=== PATIENT | male | born 1960 | race Caucasian/White ===

== ENCOUNTER 2016-12-02 07:49 | Inpatient (IN) ==
[2016-12-02] MEDS ORDERED: ENOXAPARIN 100 MG/ML SYRINGE SUBCUT STA (08:08)
[2016-12-02] MEDS ORDERED: ASPIRIN 325 MG TABLET PO STA (08:08)
[2016-12-02] MEDS ORDERED: NITROGLYCERIN 2% OINT 1 INCH/GM PACK TOP STA (08:08)
[2016-12-02] MEDS ORDERED: METOPROLOL TARTRATE 5 MG/5 ML VIAL IV STA (08:08)
--- NOTE | 2016-12-02 08:11 | EKG Report ---
Stationary ECG Study [facility] ER Test Date: 12/02/2016 8:01:47 AM Pat Name: CARL BEARD Department: Room: Gender: M Angiography Technologist: : 1960 Requested by: Florentino Martinez Order Number: [id number] Reading MD: TYRELL FUNEZ Intervals [place] Rate: 67 P: 38 MS: 176 QRS: 101 QRSD: 104 T: 60 QT: 394 QTc: 410 Interpretive Statements SINUS RHYTHM MARKED RIGHT AXIS DEVIATION Electronically Signed On 12-02-16 20:54:48 ELECTRICAL PANEL BUILDER by TYRELL FUNEZ [id number]
--- NOTE | 2016-12-02 08:18 | Emergency Department Note ---
Riccardo Ridley Meredith, am scribing for, and in the presence of, Florentino Mcghee MD 08: 11. Litzy Ridley James D, MD, personally performed the services described in this documentation, ascribed by Kenyatta Gu in my presence, and it is both accurate and complete 816 . Arrival - Arrival Chief Complaint: Chest Pain Stated Complaint: chest pain, left arm numb, headache, lightheaded ED Nursing Triage Note: Pt c/o Chest pain, PITT, left arm pain, left hand numbness , SOB, nausea, and lightheaded off and on for a while now. Mode of Arrival: Ambulatory Limitations: No Limitations Source: Patient, Old Records Reviewed, RN Notes Reviewed Time Seen by Provider: 12/02/16 08:09 - History of Present Illness HPI Narrative: Pt is a 56 y/o white male reporting to the ED with c/o intermittent chest pain for several months. He confirms associated headache, left arm pain, left hand numbness, shortness of breath, nausea, and lightheadedness but denies any fever or chills. Pt has a history of HTN. Onset (ago): month(s) Consistency: intermittent Allergies/Adverse Reactions: Allergies Allergy/AdvReac Type Severity Reaction Status Date / Time Shrimp Allergy Swelling Verified 12/02/16 07:53 of Lip/Tongue/Throat Home Medications: Home Medications Medication Instructions Recorded Confirmed Type No Known Home Medications [No 12/02/16 12/02/16 History Known Home Medications] Review of System - Review of System 12 point system: reviewed and no additional remarkable complaints except as stated - Review of System Constitutional: Present: as per HPI, other (lightheaded). Absent: chills, fever Respiratory: Present: as per HPI, other (SOB) Cardiovascular: Present: as per HPI, chest pain Gastrointestinal: Present: as per HPI, nausea Musculoskeletal: Present: as per HPI, arm pain (left) Neurological: Present: as per HPI, headache, numbness (left hand) Medical,Surgical,& Family Hx - Medical History Cardio: History of: Hypertension (No meds) - Surgical History Thoracic Surgeries: Patient denies;: Lobectomy - Family History Family History: Reports;: Family Heart Disease (Mother and Father) - Social History Smoking Status: Never smoker Exam Physical Examination: GENERAL: This is a well-nourished, well-developed white male in no apparent distress. VITAL SIGNS: Temperature: 97.1, Pulse: 71, Respirations: 18, Blood pressure: 149 /110, O2 Saturation: 97 HEENT: Head is normocephalic and atraumatic. Pupils are equally round and reactive to light. Extraocular movement are intact. Oropharynx is benign with moist mucous membranes. NECK: Neck is soft and supple without tenderness. There are no masses. There is no lymphadenopathy. LUNGS: Lungs are clear to auscultation bilaterally. Chest rises symmetrically. There is no chest wall tenderness. CV: Heart is regular rate and rhythm without murmurs, rubs, or gallops. ABDOMEN: Abdomen is soft, non-tender to palpation. There are no abnormal masses palpated. There is no organomegaly. Bowel sounds are present and active. SKIN: Skin is warm and dry. No rash. EXTREMITIES: Patient has full range of motion without tenderness. There is no pedal edema. NEUROLOGIC: Awake, alert, and oriented x4. Cranial nerves II through XII are grossly intact. There are no motorsensory deficits. PSYCHIATRIC: Normal affect. Normal mood. Vital Signs: Vital Signs Temperature 97.1 F L 12/02/16 08:10 Pulse Rate 79 12/02/16 08:10 Respiratory Rate 19 12/02/16 08:10 Blood Pressure 154/91 12/02/16 08:10 O2 Sat by Pulse Oximetry 100 12/02/16 08:10 Course - Consultations Consultation #1: Discussed with hospitalist. Patient will be admitted to their service. Time: 09:20 Results - Labs CBC & BMP: 12/02/16 08:08 12/02/16 08:08 Lab Results: I have reviewed the patients labs Labs: Laboratory Tests 12/02/16 08:08 WBC 4.7 RBC 4.98 Hgb 15.1 Hct 45.9 Plt Count 178 Baso % (Auto) 0.9 H Laboratory Tests 12/02/16 08:08 INR 1.0 PT Patient/Control Mix 10.1 Circ Anticoag PTT 27.6 Laboratory Tests 12/02/16 12/02/16 08:08 08:08 Sodium 147 H Potassium 4.0 Chloride 109 H Carbon Dioxide 27 BUN 16 Creatinine 1.00 Glucose 110 H Troponin I < 0.015 - EKG EKG results: interpreted by ERMD - Impressions EKG: Normal sinus rhythm with rate of 67, right axis deviation, nonspecific ST- T wave changes. - Diagnostic Findings Procedure: Chest x-ray: image reviewed by me, report reviewed by me (The lungs are borderline hyperexpanded. No acute process otherwise. ) Disposition Clinical Impression: Chest pain, Family history of coronary artery disease in father Case discussed with: patient Disposition: Still a Patient Condition: Stable Time of Disposition: 09:20
[2016-12-02 08:24] LABS: Basophils % 0.9 % (0.0-0.8); Eosinophils # 0.3 10*3/uL (0.0-0.87); Eosinophils % 6.9 % (0.00-10.9); Hematocrit 45.9 VOL% (42.0-52.0); Hemoglobin 15.1 GM/DL (14.0-18.0); Immature Granulocytes % 0.2 %; Immature Granulocytes Absolute 0.01 #; Lymphocytes # 1.6 10*3/uL (1.4-4.0); Lymphocytes % 34.8 % (21.2-54.2); Mean Corpuscular HGB Conc 32.9 GM/DL (32-36); Mean Corpuscular Hemoglobin 30 PG (27-34); Mean Corpuscular Volume 92.2 FL (87-102); Mean Platelet Volume 10.3 FL (9.6-12.0); Monocytes # 0.4 10*3/uL (0.11-0.8); Neutrophils # 2.3 10*3/uL (1.4-7.4); Neutrophils % 48.2 % (38.7-73.9); Platelet Count 178 T/CUMM (130-400); Red Blood Count 4.98 MC/CUMM (3.8-5.5); Red Cell Distribution Width 12.6 % (9.3-17.3); White Blood Count 4.7 T/CUMM (4-12)
--- NOTE | 2016-12-02 08:34 | XRay Report ---
History: Chest pain Date: 12/02/2016 Study: Chest x-ray PA lateral Comparison exam: No previous chest x-ray available The cardiac silhouette is not enlarged. There is no mediastinal mass. The pulmonary vasculature is not engorged. The lungs are borderline hyperexpanded. There is no confluent infiltrate to suggest pneumonia. There is no pleural effusion. There is mild thoracic spondylosis and mild osteopenia. Impression: The lungs are borderline hyperexpanded. No acute process otherwise PROCEDURE INTERPRETED AT [facility] DEPARTMENT OF RADIOLOGY Final Report Signed by: Dr. Romelia Kiser
[2016-12-02 08:35] LABS: PT Patient Result 10.1 SECS; Partial Thromboplastin Time 27.6 SECS (0-40)
[2016-12-02 08:41] LABS: Albumin 3.9 G/DL (3.4-5.0); Bilirubin,Total 0.9 MG/DL (0.2-1.0); Osmolality,Calculated 293.4 MOS/KG (273-304); Total Protein 6.9 G/DL (6.4-8.3)
[2016-12-02] MEDS ORDERED: ENOXAPARIN 120 MG/0.8 ML SYRINGE SUBCUT ONE (08:41)
[2016-12-02] MEDS ORDERED: METOPROLOL TARTRATE 5 MG/5 ML VIAL IV ONE (08:42)
[2016-12-02] MEDS ORDERED: NITROGLYCERIN 2% OINT 1 INCH/GM PACK TOP ONE (08:42)
[2016-12-02] MEDS ORDERED: ASPIRIN 325 MG TABLET ONE (08:42)
[2016-12-02] MEDS ORDERED: ONDANSETRON 4 MG/2 ML VIAL IV PRN (09:59)
[2016-12-02] MEDS ORDERED: NITROGLYCERIN SL 0.4 MG TABLET SL PRN (09:59)
[2016-12-02] MEDS ORDERED: BISACODYL 5 MG TABLET PO PRN (09:59)
[2016-12-02] MEDS ORDERED: ALUM/MAG/SIMETH/LIDO VISC 1:1 30 ML BOTTLE PO PRN (09:59)
[2016-12-02 10:25] LABS: Risk Ratio 4.45; VLDL CHOLESTEROL 24.8 MG/DL
--- NOTE | 2016-12-02 10:42 | Hospitalist History & Physical ---
<Rosanne Bailey - Last Filed: 12/02/16 11:03> Assessment and Plan - Time spent with patient Time spent with patient: Less than 30 minutes (1) Chest pain Status: Acute Assessment and plan: Due to the strong familiar predisposition for coronary artery disease, sudden cardiac , and presenting symptoms, the patient will be admitted to the telemetry unit for a extensive cardiac evaluation. We will continue serial cardiac enzymes as previously ordered and consult Cardiology for evaluation. Current Visit: Yes Qualifiers: Chest pain type: unspecified Qualified Code(s): R07.9 - Chest pain, unspecified (2) Hyperlipidemia Status: Acute Assessment and plan: Will start lipid lowering agents and consult dietary for education. Current Visit: Yes Qualifiers: Hyperlipidemia type: unspecified Qualified Code(s): E78.5 - Hyperlipidemia , unspecified History of Present Illness Chief complaint: "chest pain" History of present illness: This is a 56 year-old middle aged male that presented to the ED with a compliant of chest pain. He reports the onset of pain "a couple of weeks ago" with gradual worsening of symptoms. He reports previous episodes similar in nature in the past; however none as severe as the present episode. He reports a fear of hospitals and states that he was"afraid to go". He describes the pain as "indigestion that moves to the back. Home Medications Medication Instructions Recorded Confirmed Type No Known Home Medications [No 12/02/16 12/02/16 History Known Home Medications] Allergies Allergy/AdvReac Type Severity Reaction Status Date / Time Shrimp Allergy Swelling Verified 12/02/16 07:53 of Lip/Tongue/Throat Medical,Surgical,& Family Hx - Medical History Cardio: History of: Hypertension (No meds) - Surgical History Thoracic Surgeries: Patient denies;: Lobectomy - Family History Family History: Reports;: Family Heart Disease (Mother and Father), Family Hypertension, Additional Family History (Father of sudden cardiac at the age 52.) - Social History Smoking Status: Never smoker Frequency of Alcohol Use: None Type of Drug Use: None Marital Status: Lives With:: Spouse Functional capacity: independent ambulation - EENT Eyes: Present: as per HPI Ears: Present: as per HPI Nose, mouth and throat: Present: as per HPI - Cardiovascular Cardiovascular: Present: chest pain at rest, chest pain with activity, radiating jaw, neck or arm pain (Reports neck pain at night). Absent: dyspnea, dyspnea on exertion, lightheadedness - Gastrointestinal Gastrointestinal: Present: constipation - Genitourinary Genitourinary: Present: as per HPI - Musculoskeletal Musculoskeletal: Present: as per HPI - Neurological Neurological: Present: as per HPI - Psychiatric Psychiatric: Present: as per HPI - Endocrine Endocrine: Present: as per HPI Exam - Constitutional Vitals: Period Temp Pulse Resp BP Sys/Amin Pulse Ox Last 24 Hr 55 19 141/91 99 General appearance: normal weight, no acute distress - Head Head exam: Present: normal inspection, normocephalic, atraumatic - Eye Eye exam: Present: EOMI. Absent: periorbital swelling, scleral icterus Pupils: Present: NICK - ENT ENT exam: Present: normal exam - Neck Neck exam: Present: normal inspection. Absent: lymphadenopathy, thyromegaly - Respiratory Respiratory exam: Present: clear to auscultation bilaterally. Absent: rales, rhonchi, stridor, wheezes - Cardiovascular Cardiovascular exam: Present: bradycardia - GI/Abdominal GI/Abdominal exam: Present: normal bowel sounds, hypoactive bowel sounds, soft - Extremities Exam Extremities exam: Present: normal inspection, full ROM. Absent: edema - Back Exam Back exam: Present: normal inspection - Neurological Exam Neurological exam: Present: alert, oriented X3, CN II-XII intact - Psychiatric Psychiatric exam: Present: normal affect - Skin Skin exam: Present: normal color Results - Labs CBC & BMP: 12/02/16 08:08 12/02/16 08:08 Lab Results: I have reviewed the past 24 hour labs - EKG EKG results: sinus rhythm EKG shows: bradycardia Quality Measures - VTE Deep Vein Thrombosis/Pulmonary Embolism Present on Admission: No <Venkata Samuel - Last Filed: 12/02/16 16:18> Assessment and Plan (1) Chest pain Status: Acute Assessment and plan: Plan is for cath tomorrow. Current Visit: Yes Qualifiers: Chest pain type: unspecified Qualified Code(s): R07.9 - Chest pain, unspecified (2) Hyperlipidemia Status: Acute Current Visit: Yes Qualifiers: Hyperlipidemia type: unspecified Qualified Code(s): E78.5 - Hyperlipidemia , unspecified (3) Family history of coronary artery disease in father Status: Chronic Current Visit: Yes History of Present Illness History of present illness: Mr. Michelle is a 56 year old WM admitted with chest pain. He describes the pain as sharp and over his entire chest and left side. The pain is sometimes associated with diaphoresis, dizziness and weakness. Occurs at rest or with exertion. His father did of an [place] at the age of 52. He does not use tobacco. He also does not visit any doctors regularly. He does report a history of hyperlipidemia with cholesterol in the 400s, which he treated with diet, has never taken a medication for it. He also reports some high blood pressure readings with systolic in 160s, doesn't check regularly or take medications for it. He has multiple other complaints as well. Including pain at the bottom of his feet on awakening. He also complains of intermittent confusion for over a year now. As well as headaches for several years. In the ED his troponin was wnl and ekg without st elelvation. Patient is very anxious about being in the hospital. Patient is very anxious. But given the early unexpected of his father, plus his history of noncompliance will go ahead and get cardiology on board to assist. Medical,Surgical,& Family Hx - Medical History Endocrine: History of: Dyslipidemia - Constitutional Constitutional: Absent: chills, fever(s) - EENT Eyes: Absent: blurry vision, loss of vision Ears: Absent: decreased hearing, ear pain Nose, mouth and throat: Present: headache(s). Absent: dysphagia - Cardiovascular Cardiovascular: Absent: edema - Respiratory Respiratory: Absent: cough, wheezing - Gastrointestinal Gastrointestinal: Absent: abdominal pain, nausea - Genitourinary Genitourinary: Absent: hematuria - Musculoskeletal Musculoskeletal: Absent: back pain, muscle weakness - Neurological Neurological: Present: confusion, dizziness, focal weakness, headache(s) - Psychiatric Psychiatric: Present: anxiety. Absent: depression - Endocrine Endocrine: Present: polydipsia, polyuria - Hematologic/Lymphatic Hematologic/Lymphatic: Absent: easy bleeding, easy bruising Exam - Constitutional Vitals: Period Temp Pulse Resp BP Sys/Amin Pulse Ox Last 24 Hr 97.5 F 52-58 18-24 126-145/83-101 96-100 - Psychiatric Psychiatric exam: Present: anxious - Skin Skin exam: Present: intact Results - Labs CBC & BMP: 12/02/16 08:08 12/02/16 08:08
[2016-12-02] MEDS: ACETAMINOPHEN 325 MG TABLET PO PRN ×3 (12:05→22:45)
[2016-12-02] MEDS: SODIUM CHLORIDE 0.45% 1,000 ML IV SCH ×2 (12:06→22:47)
--- NOTE | 2016-12-02 13:18 | EKG Report ---
Stationary ECG Study [facility] Test Date: 12/02/2016 1:18:22 PM Pat Name: CARL BEARD Department: Room: 285 Gender: M Automatic Buffing Wheel Former: : 1960 Requested by: Shaheed Bailey Order Number: [id number] Reading MD: TYRELL FUNEZ Intervals [place] Rate: 54 P: 55 MN: 174 QRS: 92 QRSD: 109 T: 69 QT: 429 QTc: 414 Interpretive Statements SINUS BRADYCARDIA RIGHT AXIS DEVIATION INCOMPLETE RIGHT BUNDLE BRANCH BLOCK Electronically Signed On 12-02-16 21:03:37 INTERNATIONAL BANK MANAGER by TYRELL FUNEZ [id number]
--- NOTE | 2016-12-02 16:04 | Cardiology Consult Note ---
Joselyn Ridley April RN, am scribing for, and in the presence of, Peter Whittington MD 16:03. Assessment and Plan - Time spent with patient Time spent with patient: Greater than 30 minutes (Due to assessment, planning, and documentation) (1) Hypertension Status: Acute Current Visit: Yes (2) Chest pain Status: Acute Current Visit: Yes Qualifiers: Chest pain type: unspecified Qualified Code(s): R07.9 - Chest pain, unspecified (3) Family history of coronary artery disease in father Status: Chronic Current Visit: Yes (4) Hyperlipidemia Status: Acute Current Visit: Yes Qualifiers: Hyperlipidemia type: unspecified Qualified Code(s): E78.5 - Hyperlipidemia , unspecified History of Present Illness - Data of Consult Patient: new to practice Consult date: 12/02/16 Requesting Physician: Rosanne Bailey - Consult Narrative Reason for consult: Chest pain History of present illness: Mr. 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 Denies all surgeries except for appendectomy. Family history is positive for father who with an [place] at the age of 52. He reports he is a lifetime non-smoker. Mr. Michelle reports he has been having chest pain for approximately 1 year. It sometimes starts in the center of his chest and sometimes in the left side of his chest and then usually moves down his left arm. He reports sometimes it is dull and sometimes it is sharp, he cannot rate the pain because he said it varies from time to time. He can tell me no specific triggers or alleviators, saying it may start when he is lying down or when he is up moving around and it randomly goes away. He reports sometimes he has shortness of breath, dizziness , and confusion with these episodes of chest pain. He also reports he tends to have left hand and leg numbness with these episodes. He notes he has been more fatigued recently. He reports he has not come to the hospital because he is scared of hospitals. He says these episodes have not gotten any worse over the last year, but he decided to come when he thought about the fact that his father of a heart attack at 52. Currently he is pain-free and denies shortness of breath. Oxygen not in use. His blood pressure has been elevated since he has been here, he was given metoprolol tartrate 5 mg IV 1 in the ER. Currently he is not resting bradycardia with heart rates in the 50s. Labs: Hemoglobin hematocrit 15.1 and 45.9 Platelet count 178 Sodium 147 Potassium 4.0 BUN and creatinine 16 and 1.00 Troponin has been negative 3 Triglycerides 124 total cholesterol 236 LDL 167 HDL 53 Cardiology addendum Patient examined, chart reviewed and discussed with nurse Barbara Alves RN. 56-year-old male with a one-year history of recurrent atypical chest pain increasing shortness of breath. Patient has no regular physician. Had severe pain today with radiation down his right arm which frightened him and he came here for evaluation. CPK and troponin negative. EKG shows sinus rhythm with right axis deviation, late transition ST-T wave changes. Chest x-ray shows hyperinflated lung cabrales with normal heart size and no infiltrate or effusion. Currently pain-free on Lovenox, aspirin, Nitropaste. Multiple risk factors Father a heart attack age 52. Aunt of heart attack age 70. Mother following complications from aortic aneurysm surgery. Grandfather a heart attack. Lipid panel shows total cholesterol 236, LDL 167, HDL 53, triglycerides 124 6 feet 3 inches tall, 242 pounds GE reflux Caffeine abuse. The patient consumes 3 pots of coffee, approximately 30 cups per day. High anxiety No history of hypertension or diabetes Plan Cardiac cath In a.m. Procedure, risks benefits reviewed with patient with nurse Barbara mckinley for the full discussion. All questions answered. He agrees to proceed as outlined. Begin normal saline hydration CC: Venkata Samuel MD - Home Medications and Allergies Home Medications: Home Medications Medication Instructions Recorded Confirmed Type No Known Home Medications [No 12/02/16 12/02/16 History Known Home Medications] Allergies/Adverse Reactions: Allergies Allergy/AdvReac Type Severity Reaction Status Date / Time Shrimp Allergy Swelling Verified 12/02/16 07:53 of Lip/Tongue/Throat - Constitutional Constitutional: Present: as per HPI - EENT Eyes: Present: requires corrective lense. Absent: blurry vision Ears: Present: tinnitus. Absent: decreased hearing, ear pain Nose, mouth and throat: Present: headache(s). Absent: dysphagia, epistaxis, hoarseness, neck pain, sore throat - Cardiovascular Cardiovascular: Present: chest pain at rest, chest pain with activity, dyspnea, dyspnea on exertion, radiating jaw, neck or arm pain, lightheadedness, palpitations. Absent: diaphoresis, edema, orthopnea - Respiratory Respiratory: Present: cough, dyspnea, dyspnea on exertion. Absent: hemoptysis, wheezing - Gastrointestinal Gastrointestinal: Present: constipation. Absent: abdominal pain, diarrhea, hematemesis, hematochezia, melena, nausea, vomiting - Genitourinary Genitourinary: Absent: difficulty urinating, flank pain, hematuria - Musculoskeletal Musculoskeletal: Absent: back pain, joint swelling, limited range of motion, muscle weakness - Neurological Neurological: Present: confusion, dizziness, numbness. Absent: abnormal gait, abnormal speech, frequent falls, syncope - Psychiatric Psychiatric: Present: confusion. Absent: anxiety, depression - Endocrine Endocrine: Present: fatigue - Hematologic/Lymphatic Hematologic/Lymphatic: Absent: easy bleeding, easy bruising Medical,Surgical,& Family Hx - Medical History Cardio: History of: Hypertension (No meds) Endocrine: History of: Dyslipidemia (No meds) - Surgical History Abdominal Surgeries: Surgical HX of: Appendectomy - Family History Family History: Reports;: Family Heart Disease (Father [place] age 52 cause of ) , Family Hypertension (Grandmother), Family Stroke (Grandfather) - Social History Smoking Status: Never smoker Have you smoked in the last 12 months: No Frequency of Alcohol Use: None Type of Drug Use: None Lives With:: Alone Functional capacity: independent ambulation Physical Examination Vital Signs Temp Pulse Resp BP Pulse Ox 97.1 F L 71 18 149/110 97 12/02/16 07:57 12/02/16 07:57 12/02/16 07:57 12/02/16 07:57 12/02/16 07:57 General: Present: Appears Well, No Apparent Distress HEENT: Present: PERRL, Mucus Membranes Moist Neck: Present: Supple Neck, Midline Trachea, No JVD/HJR, No Bruit Cardiac: Present: Regular Rhythm, No Murmur, Bradycardia Lungs: Present: Normal Breath Sounds, No Wheeze, Rales, Rhonchi. Absent: Oxygen Neuro: Present: Numbness (Left hand and left leg at times). Absent: Essential Tremor Abdomen: Present: Soft, Active Bowel Sounds, Non-Tender. Absent: Distended Skin: Present: Clear Musculoskeletal: Present: No Pain, Normal Range of Motion Gait: Present: Normal Gait Extremities: Present: Normal Gait, Normal Upper Extr. Pulses, Normal Lower Extr. Pulses Result/EKG - Labs CBC & BMP: 12/02/16 08:08 12/02/16 08:08 Lab Results: I have reviewed the past 24 hour labs Labs: Laboratory Results - last 24 hr 12/02/16 11:38 Troponin I < 0.015 - EKG EKG results: interpreted by me EKG shows: bradycardia, sinus rhythm Quality Measures - VTE Deep Vein Thrombosis/Pulmonary Embolism Present on Admission: No Specialty Discharge - Follow Up or Referrals IPk Thomas, MD, personally performed the services described in this documentation, ascribed by Barbara Alves RN in my presence, and it is both accurate and complete [id number] .
--- NOTE | 2016-12-02 16:27 | EKG Report ---
Stationary ECG Study [facility] Test Date: 12/02/2016 4:26:08 PM Pat Name: CARL BEARD Department: Room: 285 Gender: M Mobile Sales Assistant: AUBREE,PRODUCTION MACHINE COMPUTER OPERATOR : 1960 Requested by: Shaheed Bailey Order Number: [id number] Reading MD: TYRELL FUNEZ Intervals [place] Rate: 53 P: 40 [place]: 177 QRS: 92 QRSD: 110 T: 61 QT: 430 QTc: 413 Interpretive Statements SINUS BRADYCARDIA RIGHT AXIS DEVIATION Electronically Signed On 12-02-16 21:05:50 SEWING MACHINE ASSEMBLER by TYRELL FUNEZ [id number]
--- NOTE | 2016-12-02 16:51 | Event Note ---
Patient one-year history of having chest pains or atypical for cardiac fleeting but recurrent. He has multiple risk left coronary disease. Dr. Whittington is evaluating the patient and his recommended cart catheterization. I reviewed the patient's chart I. On examination. His lungs are clear heart is regular rate and rhythm without murmur. Right groin with good pulses right radial pulses acceptable. I discussed cart catheterization for right radial artery or right femoral artery with the patient. I discussed with him the indication procedure high would be carried out as well as the risk. I discussed cardiac catheterization and percutaneous coronary intervention with the patient, no family available at this time. I reviewed with him the indications for the procedure and the basis of how the procedure would be carried out. I also reviewed with him the risk of the procedure which include but not necessarily limited to access site bleeding, bruising, pain, swelling or vascular injury that may require emergency vascular surgery, blood transfusion, or thrombin injection. Also discussed the possibility of stroke, myocardial infarction, arrhythmia which may require electrocardioversion, and the possibility of dye reaction that would require medical therapy. Also discussed the possibility of coronary artery injury, ruptured, closure or perforation that may require emergency bypass surgery. We also discussed the possibility of from a major complication. He voices understanding and agree to proceed. We will plan on carry out tomorrow.
[2016-12-02] MEDS ORDERED: POTASSIUM CHLORIDE RIDER 10 MEQ in PREMIX 1 EACH IV PRN (17:00)
[2016-12-02] MEDS ORDERED: MAGNESIUM SULF RIDER 2 GM in PREMIX 1 EACH IV PRN (17:00)
[2016-12-02] MEDS ORDERED: ASPIRIN 325 MG TABLET PO ONE (17:06)
[2016-12-03 05:05] LABS: Hematocrit 41.9 VOL% (42.0-52.0); Hemoglobin 13.9 GM/DL (14.0-18.0); Mean Corpuscular HGB Conc 33.2 GM/DL (32-36); Mean Corpuscular Hemoglobin 30 PG (27-34); Mean Corpuscular Volume 89.9 FL (87-102); Mean Platelet Volume 10.7 FL (9.6-12.0); Neutrophils % 42.6 % (38.7-73.9); Platelet Count 179 T/CUMM (130-400); Red Blood Count 4.66 MC/CUMM (3.8-5.5); Red Cell Distribution Width 12.5 % (9.3-17.3); White Blood Count 4.6 T/CUMM (4-12)
[2016-12-03 05:06] LABS: Basophils % 0.9 % (0.0-0.8); Eosinophils # 0.3 10*3/uL (0.0-0.87); Eosinophils % 6.5 % (0.00-10.9); Immature Granulocytes % 0.4 %; Immature Granulocytes Absolute 0.02 #; Lymphocytes # 1.9 10*3/uL (1.4-4.0); Lymphocytes % 41.4 % (21.2-54.2); Monocytes # 0.4 10*3/uL (0.11-0.8); Monocytes % 8.2 % (1.7-12.7)
[2016-12-03 05:56] LABS: Calcium 8.7 MG/DL (8.5-10.1); Free T4 (Free Thyroxine) 0.77 NG/DL (0.76-1.46); Osmolality,Calculated 290.6 MOS/KG (273-304); Potassium 4.1 MMOL/L (3.5-5.1); Thyroid Stimulating Hormone 1.93 uIU/ml (0.358-3.74)
--- NOTE | 2016-12-03 07:35 | Event Note ---
Patient doing well this morning. He is stable. He is a car catheterization possible percutaneous coronary intervention this afternoon is we discussed yesterday evening with the patient. His questions were answered. There are no changes in his present situation. We'll proceed with cart catheterization this afternoon.
--- NOTE | 2016-12-03 07:36 | History and Physical Update ---
Sedation H&P Update - History and Physical H&P was reviewed, the patient examined and there: are no changes in the patients condition since last H&P was completed. - Dictation Physical: refer to H&P completed by admitting physician - Physical Exam Mental Status: alert and oriented Heart: regular rate and rhythm Lung: clear to auscultation Abdomen: within normal limits Vitals: within normal limits History and Physical Changes: None - Sedation Plan for Sedation: moderate Patient Consent: Procedure disscussed with patient and patinet has consented., Risks and benefits were discussed with patient,including infection,, bleeding, injury to surrounding structures, seizure, temporary nerve, Patient understands and accepts potential risks/benefits and agrees to, proceed. ASA Class: III Airway Assessment: Class III: Soft palate, base of uvula visible
--- NOTE | 2016-12-03 07:50 | XRay Report ---
Exam: Chest 2 views Date: December 03, 2016 at 7:10 AM Comparison: Chest 2 views December 02, 2016 Reason: Chest pain Findings: The cardiac silhouette is normal in size. The lungs are slightly hyperexpanded, which can be seen in COPD. No focal consolidation, pneumothorax or pleural effusion is identified. No acute osseous process is seen. Impression: There has been no significant change. PROCEDURE INTERPRETED AT [facility] DEPARTMENT OF RADIOLOGY Final Report Signed by: Dr. Gil Bryan
[2016-12-03] MEDS ORDERED: diphenhydrAMINE CAP 25 MG CAPSULE PO ONE (08:00)
[2016-12-03] MEDS ORDERED: DIAZEPAM 5 MG TABLET PO ONE (08:00)
[2016-12-03] MEDS ORDERED: ASPIRIN EC 81 MG TABLET PO SCH (09:00)
[2016-12-03] MEDS ORDERED: PANTOPRAZOLE 40 MG TABLET PO SCH (09:00)
[2016-12-03] MEDS ORDERED: methylPREDNISolone SOD SUC 125 MG/2 ML VIAL IV ONE (10:00)
--- NOTE | 2016-12-03 10:43 | Hospitalist Progress Note ---
Assessment and Plan (1) Chest pain Status: Acute Current Visit: Yes Qualifiers: Chest pain type: unspecified Qualified Code(s): R07.9 - Chest pain, unspecified Hospitalist: Subjective Interval history: 56 yo male presentation with chest pain syndrome. Cardiac biomarkers negative with coronary angiogram scheduled for later today. No chest symptoms overnight. Exam - Constitutional Vitals: Period Temp Pulse Resp BP Sys/Amin Pulse Ox Last 24 Hr 97 F-98.5 F 50-56 18-21 116-144/64-91 94-99 General appearance: normal weight - Respiratory Respiratory exam: Present: clear to auscultation bilaterally. Absent: rales, rhonchi, wheezes - Cardiovascular Cardiovascular exam: Present: regular rate and rhythm - GI/Abdominal GI/Abdominal exam: Present: normal bowel sounds. Absent: tenderness - Extremities Exam Extremities exam: Absent: edema - Neurological Exam Neurological exam: Present: alert, oriented X3 Results - Labs CBC & BMP: 12/03/16 04:36 12/03/16 04:36 Quality Measures - VTE Deep Vein Thrombosis/Pulmonary Embolism Present on Admission: No Specialty Discharge - Follow Up or Referrals
[2016-12-03] MEDS ORDERED: LIDOCAINE 1% 20 ML VIAL ONE (12:57)
[2016-12-03] MEDS ORDERED: fentaNYL 100 MCG/2 ML VIAL ONE (12:57)
[2016-12-03] MEDS ORDERED: MIDAZOLAM 2 MG/2 ML VIAL ONE (12:57)
[2016-12-03] MEDS ORDERED: NITROGLYCERIN DRIP 50 MG/250 ML BOTTLE IV ONE (12:57)
[2016-12-03] MEDS ORDERED: VERAPAMIL 5 MG/2 ML VIAL ONE (12:57)
[2016-12-03] MEDS ORDERED: HYDROmorphone 2 MG/1 ML VIAL ONE (13:21)
[2016-12-03] MEDS ORDERED: diphenhydrAMINE 50 MG/1 ML VIAL ONE (13:21)
[2016-12-03] MEDS ORDERED: ENOXAPARIN 30 MG/0.3 ML SYRINGE ONE (13:25)
--- NOTE | 2016-12-03 13:48 | Cardiac Catheterization ---
Date of Procedure:: 12/03/16 Pre-op Diagnosis: Anginal quality chest pain with trivial increased troponin. Procedure: LEFT HEART CATHETERIZATION History: 60-year-old man with eschar disease with angina symptomatology trivial increased troponin. Pre-Op diagnosis: Angina symptomology and probably coronary disease. Postoperative diagnosis: Normal coronary arteries Procedures: 1. Left heart catheterization. 2. Left ventricular angiogram. 3. Selective left and right coronary angiograms. Equipment: Terumo 6 [place] radial glide arterial sheath, Terumo 6 [place] radial TIG 4.0 diagnostic. Large TR band. Medications: Preoperative Benadryl and Valium given by mouth. Lidocaine 1% local anesthesia 0.6 mls administered by myself. Intraprocedure patient received Versed 2 mgs IVP, fentanyl 100 mcgs IVP, Verapamil 5 mg/NTG 200 mcg in 5 ml NS; Dilaudid 1 mgs IVP; Benadryl 25 mg; Lovenox 30 mg IVP. Complications: None immediate. Contrast: Omnipaque 58 milliliters. Description of procedure: After informed consent the patient was given preoperative medications and brought to the catheterization laboratory where their right groin and right anterior wrist and forearm was prepped and draped in usual fashion. IV sedation was then obtained after which local anesthesia with lidocaine was administered over the right radial artery. Using the double wall needle the radial artery was cannulated. Microguidewire was advanced through the cannula into the radial artery. We exchanged for the radial artery sheath that was advanced over the microguidewire. Guidewire was removed. The diagnostic 6 [place] TIG 4.0 catheter was advanced and used to cross the aortic valve and left ventricular pressures were measured with LVEDP. Left ventricular angiogram was then obtained in the right oblique view. Pressures were again measured in the left ventricle with pullback pressures were then measured in the aortic root. This same catheter was then used to cannulate the left and then right coronary arteries of which angiograms were obtained of each of these vessels in multiple projections. The angiograms were then reviewed. The diagnostic catheter was then removed over the guidewire. The TR band was then placed in the usual fashion and hemostasis obtained. Hemodynamic data: LV 101/15 , EDP 16 ; post angio LV 115/18 , EDP 21 ; AO root 120/84 , mean 103 . Left ventricular angiogram: Left ventricle is normal size systolic function with an ejection fraction of 60+ percent. No seminal wall motion modalities. No mitral regurgitation is significant study. Aortic valve is probably a tricuspid structure. Left main coronary artery angiogram: Left main coronary is medium large size vessel that bifurcates in LAD and circumflex arteries. It is without stenosis or disease. Left anterior descending artery angiogram: Left into see artery is a medium R size vessel proximally. It extends around the posterior apex. Diagonal branches are medium caliber branches. There is no stenosis or other disease in the LAD proper or branches. Circumflex artery angiogram: Circulatory is a medium to large caliber vessel proximally, gives rise to a first large size first obtuse marginal branch followed by a couple smaller obtuse marginal branches. There is no stenosis of the disease in circumflex artery or branches. Right coronary artery angiogram: RCA is large and dominant. It gives rise to a medium caliber PDA and medium caliber posterior branches and a small AV node artery distally. There is no stenosis or other disease in the RCA proper or branches. Impression: 1. Left ventricle is normal size systolic function ejection fraction is 2 + percent. 2. LVEDP is upper is normal at 60 mmHg. 3. There is no gradient across the aortic valve that appears be a tricuspid structure. 4. There is no some mild regurgitation noted. 5. Right and left coronary arteries are anatomically normal with a right down system and without stenosis or the disease. Discussion: Will monitor the patient post cart catheterization. We'll continue his present medication and risk factor modification is indicated. He certainly does not have disease to account for his symptomatology. Implants: None Anesthesia: local, moderate conscious sedation Surgeon / Physician: Eduardo Negron Mirror Specialist: other (Cydney Muller RN) Estimated blood loss: minimal Specimens: none sent Condition: stable Disposition: floor - Medications / Follow-up
[2016-12-03] MEDS: ACETAMINOPHEN 325 MG TABLET PO PRN (14:06)
[2016-12-03] MEDS: SODIUM CHLORIDE 0.45% 1,000 ML IV SCH ×2 (15:16→15:23)
--- NOTE | 2016-12-03 15:53 | Cardiology Progress Note ---
Assessment and Plan (1) Chest pain Status: Acute Current Visit: Yes Qualifiers: Chest pain type: unspecified Qualified Code(s): R07.9 - Chest pain, unspecified (2) Family history of coronary artery disease in father Status: Chronic Current Visit: Yes (3) Hyperlipidemia Status: Acute Current Visit: Yes Qualifiers: Hyperlipidemia type: unspecified Qualified Code(s): E78.5 - Hyperlipidemia , unspecified Cardiology - PN: Subj Interval history: Cardiology note. Cardiac cath performed from the right radial approach. Findings reviewed with patient. Widely patent coronary arteries ejection fraction 60%. Patient reassured. Noncardiac chest pain. Blood pressure 130/86 in the left arm by me. Atypical chest pain Caffeine abuse High anxiety Plan Home okay with me. Routine GE reflux precautions reviewed. Office visit in 2 weeks with me to recheck blood pressure Daily walking weight reduction encouraged. Exam (Progress Note) - Constitutional Vitals: Period Temp Pulse Resp BP Sys/Amin Pulse Ox Last 24 Hr 97 F-98.5 F 50-92 18-20 116-152/64-91 94-98 Result/EKG - Labs CBC & BMP: 12/03/16 04:36 12/03/16 04:36 Labs: Laboratory Results - last 24 hr 12/02/16 12/03/16 12/03/16 17:37 04:36 04:36 WBC 4.6 RBC 4.66 Hgb 13.9 L Hct 41.9 L MCV 89.9 MCH 30 MCHC 33.2 RDW 12.5 Plt Count 179 MPV 10.7 Neut % (Auto) 42.6 Lymph % (Auto) 41.4 [place] % (Auto) 8.2 Eos % (Auto) 6.5 Baso % (Auto) 0.9 H Neut # (Auto) 2.0 Lymph # (Auto) 1.9 [place] # (Auto) 0.4 Eos # (Auto) 0.3 Baso # (Auto) 0.0 Immature Gran % 0.4 Nucleated RBC % 0.0 Immature Gran # 0.02 Nucleated RBCs # 0.00 Sodium 146 H Potassium 4.1 Chloride 110 H Carbon Dioxide 24 Anion Gap 16.1 H BUN 16 Creatinine 1.00 GFR Calculation 116 BUN/Creatinine Ratio 16.00 Glucose 100 Hemoglobin A1c Calculated Osmolality 290.6 Calcium 8.7 Magnesium 2.0 Troponin I < 0.015 Free T4 0.77 TSH 3rd Generation 1.930 12/03/16 04:36 WBC RBC Hgb Hct MCV MCH MCHC RDW Plt Count MPV Neut % (Auto) Lymph % (Auto) [place] % (Auto) Eos % (Auto) Baso % (Auto) Neut # (Auto) Lymph # (Auto) [place] # (Auto) Eos # (Auto) Baso # (Auto) Immature Gran % Nucleated RBC % Immature Gran # Nucleated RBCs # Sodium Potassium Chloride Carbon Dioxide Anion Gap BUN Creatinine GFR Calculation BUN/Creatinine Ratio Glucose Hemoglobin A1c 6.3 Calculated Osmolality Calcium Magnesium Troponin I Free T4 TSH 3rd Generation Quality Measures - VTE Contraindication to Pharmacological VTE Prophylaxis: High Risk of Bleeding Specialty Discharge - Follow Up or Referrals
--- NOTE | 2016-12-03 16:25 | Discharge Summary ---
Hospital Course - Hospital Course Hospital Course: 56 yo male with atypical chest pain admitted for evaluation. Cardiac biomarkers negative with cardiac catheterization performed today with normal coronary findings. He is to be discharged with follow-up with Dr. Whittington in two weeks for completion of work-up. Specialty Discharge - Follow Up or Referrals Follow up with: Peter Whittington MD [Physician] - Discharge Plan - Discharge Data Disposition: Disch To Home/Self Care Condition at Discharge: Stable Discharge Diet: advance to your usual diet Activity: resume usual activities as tolerated Driving: no restrictions - Discharge Medications No Action No Known Home Medications [No Known Home Medications] - Follow Up or Referral Follow Up: Peter Whittington MD [Physician] - - Forms/Instructions Instructions: Coronary Artery Disease (GEN), Heart Healthy Diet (GEN) Exam - Constitutional Vitals: Period Temp Pulse Resp BP Sys/Amin Pulse Ox Last 24 Hr 97 F-97.6 F 50-92 18-20 116-152/64-91 94-98 Discharge Results Procedures and tests throughout hospitalization: Pending Orders 12/03/16 11:10 CL heart Routine Labs on day of discharge: Labs from last 24 hours 12/03/16 12/03/16 12/03/16 04:36 04:36 04:36 WBC 4.6 RBC 4.66 Hgb 13.9 L Hct 41.9 L MCV 89.9 MCH 30 MCHC 33.2 RDW 12.5 Plt Count 179 MPV 10.7 Neut % (Auto) 42.6 Lymph % (Auto) 41.4 [place] % (Auto) 8.2 Eos % (Auto) 6.5 Baso % (Auto) 0.9 H Neut # (Auto) 2.0 Lymph # (Auto) 1.9 [place] # (Auto) 0.4 Eos # (Auto) 0.3 Baso # (Auto) 0.0 Immature Gran % 0.4 Nucleated RBC % 0.0 Immature Gran # 0.02 Nucleated RBCs # 0.00 Sodium 146 H Potassium 4.1 Chloride 110 H Carbon Dioxide 24 Anion Gap 16.1 H BUN 16 Creatinine 1.00 GFR Calculation 116 BUN/Creatinine Ratio 16.00 Glucose 100 Hemoglobin A1c 6.3 Calculated Osmolality 290.6 Calcium 8.7 Magnesium 2.0 Troponin I Free T4 0.77 TSH 3rd Generation 1.930 12/02/16 17:37 WBC RBC Hgb Hct MCV MCH MCHC RDW Plt Count MPV Neut % (Auto) Lymph % (Auto) [place] % (Auto) Eos % (Auto) Baso % (Auto) Neut # (Auto) Lymph # (Auto) [place] # (Auto) Eos # (Auto) Baso # (Auto) Immature Gran % Nucleated RBC % Immature Gran # Nucleated RBCs # Sodium Potassium Chloride Carbon Dioxide Anion Gap BUN Creatinine GFR Calculation BUN/Creatinine Ratio Glucose Hemoglobin A1c Calculated Osmolality Calcium Magnesium Troponin I < 0.015 Free T4 TSH 3rd Generation DS: Provider Date of admission: 12/02/16 09:32 Primary care physician: . No PCP Attending physician on admission: Venkata Samuel MD Consults: 12/02/16 10:00 Consult to Cardiac Rehabilitation [CONS] Routine Reason for Cardiac Rehabilitation: Risk Factor Modification 12/02/16 10:38 Consult to Physician [CONS] Routine Comment: Consulting Provider: Consult to Specialist Group: Cardiology When should Consulting Provider be notified: Now 12/02/16 11:39 Consult to Pharmacy [CONS] Routine Reason for Pharmacy Consult: Adjust Meds Renal Funct Discharging clinician: NANCY Smith Expected date of discharge: 12/03/16
[2016-12-03 17:38] VITALS: BP 130/91
== END 2016-12-03 18:40 | disposition home or self-care (01) | DRG 287 ==
LOC: N.ED 07:49 → N.EDINP 09:32 → SUATTDRO 09:32 → N.TELEN 10:11
PROVIDERS: ADMIT Internal Medicine; ATTEND Internal Medicine Cardiovascular Disease
PROC: CLCCHCL (ICD-10-PCS; 2016-12-03 12:15)